=== PATIENT | female | born 1955 | race Caucasian/White ===

== ENCOUNTER 2022-04-15 09:33 | Observation (INO) ==
[2022-04-15] MEDS ORDERED: ANCEF VIAL 1 GRAM ONE (09:51)
[2022-04-15] MEDS ORDERED: LR 1,000 ML IV 1,000 ML IV ONE ×2 (09:51→13:20)
[2022-04-15] MEDS ORDERED: NS 100 ML IV 100 ML ONE (09:52)
[2022-04-15 10:28] VITALS: BMI 27.1
[2022-04-15] MEDS ORDERED: VERSED ONE ×2 (11:14→12:14)
[2022-04-15] MEDS ORDERED: NAROPIN 0.75% EPI ONE (11:15)
[2022-04-15] MEDS ORDERED: ZEMURON 100 MG VIAL ONE (12:14)
[2022-04-15] MEDS ORDERED: DIPRIVAN VIAL 20 ML ONE (12:14)
[2022-04-15] MEDS ORDERED: FENTANYL VIAL INJ 250 mcg ONE (12:14)
[2022-04-15] MEDS ORDERED: QUELICIN (OR ANECTINE) ONE (12:14)
[2022-04-15] MEDS ORDERED: ZOFRAN INJ 4 MG VIAL ONE (12:19)
[2022-04-15] MEDS ORDERED: TORADOL 30 MG VIAL ONE (12:19)
[2022-04-15] MEDS ORDERED: BRIDION ONE (12:19)
[2022-04-15] MEDS ORDERED: ZOFRAN INJ 4 MG VIAL IVP PRN ×2 (12:43→15:37)
[2022-04-15] MEDS ORDERED: BARHEMSYS INJ IVP PRN (12:43)
[2022-04-15] MEDS ORDERED: REGLAN INJ 10 MG VIAL IVP PRN (12:43)
[2022-04-15] MEDS ORDERED: BENADRYL INJ 50 MG VIAL IVP PRN (12:43)
[2022-04-15] MEDS ORDERED: EPHEDRINE SULFATE INJ ONE (13:13)
[2022-04-15] MEDS ORDERED: ULTANE GAS IN ONE (13:14)
[2022-04-15] MEDS ORDERED: MARCAINE 0.5% ONE (15:12)
[2022-04-15] MEDS ORDERED: DILAUDID INJ ONE (15:35)
[2022-04-15] MEDS: DILAUDID INJ IVP PRN ×3 (15:36→15:52)
[2022-04-15] MEDS ORDERED: TYLENOL 325 MG TAB PO PRN (15:37)
[2022-04-15] MEDS ORDERED: PERCOCET TAB 5/325 MG PO PRN (15:37)
[2022-04-15] MEDS ORDERED: MORPHINE SULFATE INJ 4 MG IVP PRN (15:41)
[2022-04-15] MEDS: NEURONTIN CAP 300 MG PO SCH ×2 (17:02→21:18)
[2022-04-15] MEDS: TORADOL 30 MG VIAL IVP SCH ×2 (17:02→21:18)
[2022-04-15] MEDS: LR 1,000 ML IV 1,000 ML IV SCH ×2 (17:40→23:57)
[2022-04-15] MEDS: COLACE CAP 100 MG PO SCH (20:35)
[2022-04-16] MEDS: TORADOL 30 MG VIAL IVP SCH ×2 (04:40→09:48)
[2022-04-16] MEDS: NEURONTIN CAP 300 MG PO SCH ×3 (06:01→21:25)
[2022-04-16 06:26] LABS: BLOOD UREA NITROGEN 12 mg/dL (7-18); CALCIUM 8.5 mg/dL (8.5-10.1); CARBON DIOXIDE 30.1 mmol/L (21-32); CHLORIDE 103 mmol/L (98-107); COR NA(FOR HYPERGLY) 141 mmol/L (136-145); CREATININE 0.81 mg/dL (0.55-1.02); SODIUM 140 mmol/L (136-145); eGFR NON BLACK RACES > 60 (>60)
[2022-04-16] MEDS: LR 1,000 ML IV 1,000 ML IV SCH (07:42)
--- NOTE | 2022-04-16 09:44 | NOTE.SOAP ---
Soap Note Note for Day of Date of Exam: 04/16/22 Subjective Data Subjective Data: Patient seen bedside today, resting in bed. Patient states she had occasional moderate pain throughout the night, but was able to get at least a few hours of sleep. She states she is still nervous about going home. Patient notes she feels like she could comfortably get home and be safe at home, however, she has high levels of anxiety and feels staying in the hospital would help her recovery. She denies any f,c,n,v,sob, or cp. Objective Data Objective Data: LE Focused Exam: Right posterior splint in place. Clean, dry and intact. No strikethrough noted. Neurovascular status maintained at preoperative levels. CFT brisk to digits. Popliteal pulses palpable. Pain on palpation of right ankle anteriorly and medially. Able to wiggle digits. Able to active and passively move L knee through ROM without pain. 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 -Patient okay for DC from foot and ankle POV when medically cleared. She does state she is a bit nervous about going home though, as she has high levels of anxiety and "would feel more comfortable staying in the hospital another day". -Meds, instructions, and follow up appointment card in chart. To be given upon DC. -NWB to operative foot. Walker given to patient. She demonstrated ability and confidence in it's safe use. Wrote Rx for 4-legged walker on DC. -Leave splint intact until outpatient follow up in clinic. Reinforce prn. -Elevate operative limb x2 pillows. Ice to knee 15 min/ hr. -Will follow while in house
[2022-04-16] MEDS ORDERED: NS 1/2 1,000 ML IV 1,000 ML IV SCH (10:56)
[2022-04-16] MEDS ORDERED: NS 1/2 1,000 ML IV 1,000 ML IV ONE (13:02)
[2022-04-16] MEDS: PERCOCET TAB 5/325 MG PO PRN ×2 (16:08→21:26)
[2022-04-16] MEDS: LOVENOX INJ 40 MG SYR SC SCH (16:08)
[2022-04-16] MEDS: COLACE CAP 100 MG PO SCH (21:26)
[2022-04-16 21:39] LABS: BILIRUBIN,URINE NEGATIVE (NEGATIVE); BLOOD/HEMOGLOBIN,URINE 5+ (NEGATIVE); GLUCOSE, URINE NEGATIVE (NEGATIVE); KETONES,URINE NEGATIVE (NEGATIVE); LEUKOCYTE ESTERASE ,URINE 2+ (NEGATIVE); NITRITES,URINE NEGATIVE (NEGATIVE); PROTEIN,URINE 1+ (NEGATIVE); UROBILINOGEN,URINE NORMAL (NORMAL)
[2022-04-16 21:57] LABS: APPEARANCE,URINE SLIGHTLY HAZY (CLEAR); COLOR,URINE YELLOW (YELLOW)
[2022-04-16 22:00] LABS: BACTERIA,URINE TRACE /HPF (NEGATIVE); SQUAMOUS EPITHELIAL CELL,UR FEW /HPF (NEGATIVE)
--- NOTE | 2022-04-16 22:13 | RAD ---
HISTORYfever post surgery post total angle replacementSTUDYCHEST, PA/LAT ADULTCOMPARISONFebruary 2022.TECHNIQUEFrontal and lateral views of the chest were obtained.FINDINGSThe heart is not enlarged. There is no focal infiltrate or effusion. There is no pneumothorax. The osseous structures are intact.IMPRESSIONNo active pulmonary disease.Electronically signed by: Coby Finney (Apr 16, 2022 22:11:34)
[2022-04-17] MEDS: CIPRO IV 400 MG PREMIX* 400 MG/200 ML IV.SOLN. IV SCH ×2 (00:32→08:15)
[2022-04-17 05:01] LABS: BASOPHILS % (AUTO) 0.6 % (0.2-1.0); EOSINOPHILS # (AUTO) 0.2 x10^3/uL (0.0-0.2); EOSINOPHILS % (AUTO) 2.1 % (0.9-2.9); HEMATOCRIT 31.8 % (36.0-47.0); HEMOGLOBIN 10.9 g/dL (12.0-16.0); LYMPHOCYTES # (AUTO) 2.4 X10^3/uL (1.3-2.9); LYMPHOCYTES % (AUTO) 27.4 % (21.0-51.0); MEAN CORPUSCULAR HEMOGLOBIN 31.4 pg (27.0-34.0); MEAN CORPUSCULAR HGB CONC 34.1 g/dL (33.0-35.0); MEAN CORPUSCULAR VOLUME 92.1 fL (80.0-100.0); MEAN PLATELET VOLUME 7.8 fL (7.4-11.0); MONOCYTES % (AUTO) 11.5 % (0.0-13.0); NEUTROPHILS % (AUTO) 58.4 % (42.0-75.0); RED BLOOD COUNT 3.46 X10^6/uL (3.5-5.4); RED CELL DISTRIBUTION WIDTH 13.2 % (11.6-16.5); WHITE BLOOD COUNT 8.6 X10^3/uL (3.6-10.0)
[2022-04-17] MEDS: NEURONTIN CAP 300 MG PO SCH (05:46)
[2022-04-17] MEDS: LOVENOX INJ 40 MG SYR SC SCH (08:16)
[2022-04-17] MEDS: PERCOCET TAB 5/325 MG PO PRN (08:34)
[2022-04-17 10:15] VITALS: BP 97/66
--- NOTE | 2022-04-17 11:03 | NOTE.SOAP ---
Soap Note Note for Day of Date of Exam: 04/17/22 Subjective Data Subjective Data: Patient seen bedside today, resting in bed with foot elevated on 2 pillows. Splint intact, but does appear to have been removed and loosened. Patient states she has had much less pain since yesterday and has only been taking pain medication by mouth. She states she successfully used her 4-legged walker to get to the bathroom. She does note occasional shortness of breath when she removes her nasal cannula. She is able to have full conversation with me without any signs of difficulty breathing or struggling for breath. Saw patient today with Dr. Newsome. He did mention patient spiked a 103 fever last night. There is no clinical signs of pulmonary etiology, however, she does likely have urinary tract infection. Did discuss further work up prior to discharge, but still remains hopeful for discharge later today. She denies any c,n,v, or cp. Objective Data Objective Data: LE Focused Exam: Right posterior splint in place. Clean, dry and intact - PAN has been removed and loosened at patient's request due to tightness. No strikethrough noted. Neurovascular status maintained at preoperative levels. CFT brisk to digits. Popliteal pulses palpable. Mild pain on palpation of right ankle anteriorly and medially. Able to wiggle digits. Able to active and passively move L knee through ROM without pain. Co mpartments soft and compressible. 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 -Patient okay for DC from foot and ankle POV when medically cleared. -Meds, instructions, and follow up appointment card in chart. To be given upon DC. -NWB to operative foot. Walker given to patient. She demonstrated ability and confidence in it's safe use. Wrote Rx for 4-legged walker on DC. -Leave splint intact until outpatient follow up in clinic. Reinforce prn. -Elevate operative limb x2 pillows. Ice to knee 15 min/ hr. -Will follow while in house
== END 2022-04-17 13:56 | disposition home or self-care (01) ==
LOC: MED/SURG 09:33 → SURG1 09:33 → MED/SURG 15:50
PROVIDERS: ADMIT Obstetrics & Gynecology Obstetrics; ATTEND Obstetrics & Gynecology Obstetrics
PROC: APEXFIX (2022-04-15 13:30)
DX: N39.0 Urinary tract infection, site not specified; F41.8 Other specified anxiety disorders; M12.571 Traumatic arthropathy, right ankle and foot; Z20.822 Contact with and (suspected) exposure to COVID-19; M13.871 Other specified arthritis, right ankle and foot; Z87.440 Personal history of urinary (tract) infections; I10 Essential (primary) hypertension; M21.171 Varus deformity, not elsewhere classified, right ankle